=== PATIENT | male | born 1955 | race Caucasian/White ===

== ENCOUNTER 2024-01-28 14:40 | Emergency (ER) | payer MEDICARE, SELFPAY ==
[2024-01-28 14:40] VITALS: BMI 35.2
[2024-01-28 14:42] VITALS: BP 166/87
--- NOTE | 2024-01-28 14:48 | ED.CVA ---
History of Present Illness
General
Chief Complaint: CVA/TIA Symptoms
Source: patient
Exam Limitations: none
Time Seen by Provider: 01/28/24 14:47
Nursing documentation reviewed up to this point in time: agreed with
Onset of Stroke Symptoms
Onset of symptoms known: Yes
Date of onset of symptoms: 01/23/24
History of Present Illness
History of Present Illness:
68-year-old male with history of HTN, HLD, presents for numbness left arm and facial paresthesias past week, intermittent headache, sometimes frontal sometimes in back of head. States he has also been dizzy off and on and feeling fatigued.
States 5 days ago he had tingling down left arm, it has been intermittent and today left arm felt 'cold,' he went home ant took his BP and it was 197/97. He took 975 mg ASA and an extra dose of his Losartan 50 mg, he was afraid he wasR having a
stroke so came here.
He's states his face feels 'puffy, swollen' not tingly or numb. States the puffy feeling starts in the left side of his face and travels across his face to right side. All symptoms are intermittent but states they are lasting longer and longer.
Also has had ringing in both ears past 5 days.
Returned from a trip to [place] and [facility] 4 days ago. Couple they were with ended up testing Covid positive. Pt had sore throat during that trip up until 2 days ago.
Denies n/v/d/c. Denies change in vision. Does have left side neck pain past week.
Past History
Past History
ED Past Medical History: HTN, Hypercholesterolemia and Other (Benign prostatic hypertrophy )
ED Past Surgical History: None
Social History
Tobacco: Non-smoker
Alcohol: Occasional
Personal: Partner
Living: with family
Employment: Employed
Family History
Family History: Negative Diabetes, Early CAD, CAD or Sudden
Review of Systems
Review of Systems
Allergies reviewed?: Yes
All Other Systems: ROS reviewed and negative except as documented in HPI and ROS
Constitutional: Denies fever or fatigue
EENT: Reports other (ringing in ears); Denies sore throat
Respiratory: Denies cough or trouble breathing
Cardiac: Denies chest pain
ABD/GI: Denies abdominal pain, nausea, vomiting, diarrhea, constipated or anorexia
: Denies dysuria, frequency, difficulty voiding or urgency
Musculoskeletal: Denies edema
Skin: Reports no symptoms
Neurological: Denies weakness
Psychiatric: Reports anxiety (pt admits anxiety about health, partner/ in room agrees 'he always worries about things like that')
Phy Exam
Physical Exam
Physical Exam:
GENERAL: No acute distress. A&Ox3.
CONSTITUTIONAL: Afebrile.
EYES: PERRL, conjunctivae normal
Neck: Supple.
ENMT: moist mucus membranes, Pharynx nl, TMs normal
RESPIRATORY: Regular respirations, nonlabored, lungs clear.
CARDIOVASCULAR: Regular rate and rhythm, no murmurs, no rubs. LUE warm, pink, normal radial and ulnar pulses, brisk capillary refill. Strength 5/5. No carotid bruit
GI: Soft, nontender, normal BS
MUSCULOSKELETAL: Moves with ease. Well perfused. No edema.
SKIN: Warm, dry, pink
PSYCH: Normal mood and affect. Well kept, interactive and appropriate
NEUROLOGIC: Awake, alert and oriented. Speech clear, No focal neurological deficits, CN 2-12 intact. Sensation to touch equal bilaterally face and extremities. Strength equal throughout. Finger to nose, heel to barber intact. Ambulates well with
steady gait.
Scores
NIH Stroke Score
Level of Consciousness: 0 - Alert
LOC Questions: 0-Answers both correctly
LOC Commands: 0-Performs both correctly
Best Horizontal Gaze: 0-Normal
Visual Fung: 0=Normal, no visual loss
Facial Palsy: 0=Normal, symmetrical
Motor - Right Arm: 0=No drift 10 seconds
Motor - Left Arm: 0=No drift 10 seconds
Motor - Right Le-No drift 5 seconds
Motor - Left Le-No drift 5 seconds
Limb Ataxia: 0-Absent
Sensation: 0-Normal
Best Language: 0-No aphasia
Dysarthria: 0-Normal
Extinction and Inattention: 0-No abnormality
Total Score:: 0
Course
Orders/Labs/Results
Orders:
Orders
01/28/24 15:06
CT Head W/o Iv Contrast Urgent
Comment:
Reason For Exam: L arm numbness, facial numbness
01/28/24 15:19
Acetaminophen [Tylenol] 1,000 mg PO NOW STA
01/28/24 15:35
COVID-19 Antigen Urgent
Source: Nasal Swab
Complete Blood Count/With Diff Urgent
01/28/24 15:36
Comprehensive Metabolic Panel Urgent
Lyme Progressive Urgent
01/28/24 16:03
D-Dimer Urgent
Abnormal Lab Results
01/28/24 01/28/24
15:35 15:36
RBC 4.22 L 10^6/uL
(4.70-6.10)
MCV 95.0 H fL
(80.0-94.0)
MCH 32.9 H pg
(27.0-31.0)
Absolute Monos (auto) 0.8 H 10^3/uL
(0.1-0.6)
Monocytes % 11.7 H %
(1.7-9.3)
Sodium 134 L mmol/L
(135-145)
BUN 22 H mg/dl
(9-20)
01/28/24 15:35
01/28/24 15:36
Vital Signs
Initial and Last Documented VS:
Initial Vital Signs
Temp Pulse Resp BP Pulse Ox
98.7 F 72 18 166/87 99
01/28/24 14:42 01/28/24 14:42 01/28/24 14:42 01/28/24 14:42 01/28/24 14:42
Last Documented Vital Signs
Temp Pulse Resp BP Pulse Ox
98.7 F 77 20 118/73 97
01/28/24 14:42 01/28/24 16:00 01/28/24 16:00 01/28/24 16:00 01/28/24 16:00
MDM/Problems Addressed
Differential Diagnosis Includes:
Cervical radiculopathy, CVA, Lyme's, Covid
MDM/Problems Addressed:
68-year-old male with history of HTN, HLD, presents for numbness left arm and facial paresthesias past week, intermittent headache, sometimes frontal sometimes in back of head. States he has also been dizzy off and on and feeling fatigued.1138/76
States 5 days ago he had tingling down left arm, it has been intermittent and today left arm felt 'cold,' he went home ant took his BP and it was 197/97. He took 975 mg ASA and an extra dose of his Losartan 50 mg, he was afraid he wasR having a
stroke so came here.
He's states his face feels 'puffy, swollen' not tingly or numb. States the puffy feeling starts in the left side of his face and travels across his face to right side. All symptoms are intermittent but states they are lasting longer and longer.
Also has had ringing in both ears past 5 days.
Returned from a trip to [place] and [facility] 4 days ago. Couple they were with ended up testing Covid positive. Pt had sore throat during that trip up until 2 days ago.
Denies n/v/d/c. Denies change in vision. Does have left side neck pain past week.
BP R arm 123/78, L arm 118/76
No sign of vascular compromise to the left arm, neurologically intact, full ROM
With intermittent left neck soreness could likely be cervical radiculopathy
Pt twice expressed concern/worry about 'could it be a blood clot?' No calf pain, no risk factors in his medical history, [place] So will get dimer to assure pt no sign of clot.
4:10 PM:
Head CT shows nothing acute
CBC normal
CMP normal
COVID test negative
D dimer WNL
Pt notified, stable for discharge.
Pt ambulated out with partner with normal gait at discharge
*Critical Care Note
Total Time (30-74mins, 75-104mins- exclusive of procedures): Not Applicable
ED Attending Note
-
Portions of this chart may have been created with voice recognition software.� Occasional wrong word or��sound alike� substitutions may have occurred due to the inherent limitations of voice recognition software.
Discharge Plan
Departure
Patient Disposition: Home (Routine Discharge)
Date of Disposition: 01/28/24
Time of Disposition: 16:35
Patient with high blood pressure during this ER visit?: No
Condition: Good
Discharge Problem:
Facial paresthesia, Bilateral tinnitus, Anxiety about health, Paresthesia of left arm
Instructions: Stroke (DC), Paresthesia (DC), Anxiety, Adult ED
Referrals:
Chelsie Zhao [Other] - Follow up in 5-7 days
NONE,* [Active] -
Activity Restrictions/Additional Instructions:
As we discussed, your workup here today shows nothing worrisome. Your Lyme screen will be back in 2 to 3 days, if it is positive we will contact you.
You blood pressure is now normal.
No sign of a blood clot
Your Covid test is negative.
Follow up with your doctor in one week if your symptoms persist.
Take your blood pressure daily under calm circumstances and if most are high, discuss with your doctor as you may need medication adjusted.
Return here immediately for signs of stroke listed on you discharge instructions.
Interventions
Interventions:
*Risk Screen - Suicide Last Done: 01/28/24 14:42
*General Assessment Last Done: 01/28/24 14:42
*Neglect/Abuse Screening Last Done: 01/28/24 14:42
ED- Fall Risk Assessment Last Done: 01/28/24 15:10
ED- Pulmonary Assessment Last Done: 01/28/24 15:10
ED- Neurological Assessment Last Done: 01/28/24 15:10
ED- Cardiac Assessment Last Done: 01/28/24 15:10
ED Swallowing Screen Last Done: 01/28/24 15:10
Discharge Date and Time
Print Language: SWEDISH
[2024-01-28 15:31] VITALS: BP 118/76
[2024-01-28] MEDS: TYLENOL 1000 MG PO (15:32)
[2024-01-28 15:46] LABS: % Basophils 0.6 % (0-2); % Eosinophils 1.5 % (0-6); % Immature Granulocytes 0.3 % (0-0.5); % Lymphocytes 24.8 % (20.5-51.1); % Monocytes 11.7 % (1.7-9.3); % Neutrophils 61.1 % (42.2-75.2); Absolute Eosinophils 0.1 10^3/uL (0-0.7); Absolute Lymphocytes 1.6 10^3/uL (1.2-3.4); Absolute Monocytes 0.8 10^3/uL (0.1-0.6); Hematocrit 40.1 % (39.0-52.0); Hemoglobin 13.9 g/dL (13.0-18.0); Mean Corp Hgb Conc. 34.7 g/dL (33.0-37.0); Mean Corpuscular Hgb 32.9 pg (27.0-31.0); Mean Platelet Volume 9.3 fL (7.4-10.4); Nucleated Red Blood Cells % 0 % (-); Platelet Count 225 10^3/uL (130-400); Red Blood Cell Count 4.22 10^6/uL (4.70-6.10); White Blood Cell Count 6.5 10^3/uL (4.8-10.8)
[2024-01-28 16:00] VITALS: BP 118/73
[2024-01-28 16:01] LABS: ALT (SGPT) 26 U/L (0-50); AST (SGOT) 30 U/L (17-59); Albumin 4.3 g/dl (3.5-5.0); Alkaline Phosphatase 68 U/L (38-126); Blood Urea Nitrogen 22 mg/dl (9-20); Calcium 9.5 mg/dl (8.4-10.2); Carbon Dioxide 27 mmol/L (22-30); Chloride 99 mmol/L (98-107); Glucose 94 mg/dl (70-99); Potassium 4.2 mmol/L (3.5-5.1); Sodium 134 mmol/L (135-145); Total Bilirubin 0.4 mg/dl (0.2-1.3); Total Protein 6.7 g/dl (6.3-8.2); eGFR > 60.00
[2024-01-28 16:02] LABS: COVID-19 Antigen Negative (Negative)
[2024-01-28 16:23] LABS: D-Dimer 0.48 ug/mlFEU (0.00-0.50)
[2024-01-29 15:22] LABS: Lyme Antibody Screen, EIA Negative (Negative)
== END 2024-01-28 17:17 | disposition home or self-care (01) ==
LOC: EMR 14:40
PROVIDERS: Registered Nurse; EMERGENCY PHYSICIAN Emergency Medicine
DX: R20.2 Paresthesia of skin (principal); R51.9 Headache, unspecified; R42 Dizziness and giddiness; R53.83 Other fatigue; M54.2 Cervicalgia; R20.0 Anesthesia of skin; H93.13 Tinnitus, bilateral; Z11.52 Encounter for screening for COVID-19; Z20.822 Contact with and (suspected) exposure to COVID-19; F41.9 Anxiety disorder, unspecified; I10 Essential (primary) hypertension; E78.00 Pure hypercholesterolemia, unspecified; N40.0 Benign prostatic hyperplasia without lower urinary tract symptoms
CPT/HCPCS: 99284; 70450; 80053; 85025; 85379; 86618; 87811